=== PATIENT | female | born 1975 | race Caucasian/White ===

== ENCOUNTER 2016-12-05 17:05 | Emergency (ER) | payer OTHER ==
[2016-12-05 19:47] VITALS: BP 142/80
--- NOTE | 2016-12-05 20:12 | UC ---
Skin Complaint HPI - HPI Summary HPI Summary: complaint of rash that started on her upper arms started 2 days ago then today her legs had a red itchy rash now the rash is spreading to her stomach and back started using hydrocortisone and alevera cream with some relie f hx of food allergies took some zyrtec with some relief denies any new lotions, detergents , foods, medicaitons new laundry soap no close contacts with rash - History of Current Complaint Chief Complaint: UCRash Time Seen by Provider: 12/05/16 20:05 Stated Complaint: RASH Hx Obtained From: Patient Hx Last Menstrual Period: n/a - Allergy/Home Medications Allergies/Adverse Reactions: Allergies Allergy/AdvReac Type Severity Reaction Status Date / Time certain food Allergy Swelling Uncoded 12/05/16 19:48 Of Face,Lips,& Throat seasonal Allergy Congestion Uncoded 12/05/16 19:48 Home Medications: Home Medications Cetirizine* [ZyrTEC*] 10 mg PO DAILY 12/05/16 [History Confirmed 12/05/16] Eczema Rescue 1 dose TOPICAL ONCE PRN 12/05/16 [History Confirmed 12/05/16] Hydrocortisone 0.5% CM(NF) [Hydrocortisone 0.5% CREAM(NF)] 1 applic .SEE ORDER BID 12/05/16 [History Confirmed 12/05/16] Review of Systems Constitutional: Negative Skin: Rash Eyes: Negative ENT: Negative Respiratory: Negative Cardiovascular: Negative Gastrointestinal: Negative Genitourinary: Negative Motor: Negative Neurovascular: Negative Musculoskeletal: Negative Neurological: Negative Psychological: Negative All Other Systems Reviewed And Are Negative: Yes PMH/Surg Hx/FS Hx/Imm Hx Previously Healthy: Yes - Surgical History Surgical History: Yes Surgery Procedure, Year, and Place: uterine, , tubal liigation, ablation - Family History Known Family History: Negative: Cardiac Disease, Hypertension, Diabetes - Social History Occupation: Employed Full-time Lives: With Family Alcohol Use: Weekly Substance Use Type: None Smoking Status (MU): Light Every Day Tobacco Smoker Physical Exam Triage Information Reviewed: Yes Appearance: No Pain Distress, Well-Nourished Vital Signs: Initial Vital Signs Temp 97.9 F 12/05/16 19:38 Pulse 88 12/05/16 19:38 Resp 20 12/05/16 19:38 BP 142/80 12/05/16 19:38 Vital Signs Reviewed: Yes Eyes: Positive: Conjunctiva Clear ENT: Positive: Pharynx normal, TMs normal Neck: Positive: No Lymphadenopathy Respiratory: Positive: Lungs clear, Normal breath sounds, No respiratory distress Cardiovascular: Positive: RRR, No Murmur, Pulses Normal Musculoskeletal: Positive: No Edema Neurological: Positive: Alert Psychological Exam: Normal Skin: Positive: Other - scattered papules surrounding by flat erythemaous areas accross arms, legs and torso no tunneling Course/Dx - Differential Diagnoses - Skin Complaint Differential Diagnoses: Contact Dermatitis, Eczema, Scabies - Diagnoses Provider Diagnoses: contact dermatitis Discharge - Discharge Plan Condition: Stable Disposition: HOME Prescriptions: predniSONE TAB* [Deltasone TAB*] 50 mg PO DAILY #5 tab Patient Education Materials: Contact Dermatitis (ED) Referrals: Larry Lynn MD [Primary Care Provider] - Additional Instructions: Start prednisone as directed Increase fluids and rest Please review your discharge instructions. If your symptoms do not improve please call your primary care provider or return to urgent care
== END 2016-12-05 20:24 | disposition home or self-care (01) ==
LOC: UCCORT 17:05
DX: L25.9 Unspecified contact dermatitis, unspecified cause (principal); F17.210 Nicotine dependence, cigarettes, uncomplicated; Z91.018 Allergy to other foods
CPT/HCPCS: 99202; G0463

== ENCOUNTER 2017-06-26 08:18 | Emergency (ER) | payer OTHER ==
[2017-06-26 08:40] VITALS: BP 116/75
--- NOTE | 2017-06-26 09:25 | UC ---
Eye Complaint HPI - HPI Summary HPI Summary: 41 yo female with left eye redness and d/c today runny nose post nasal drip sore throat cough just started amox - History of Current Complaint Chief Complaint: UCEye Stated Complaint: LEFT EYE COMPLAINT Time Seen by Provider: 06/26/17 09:08 Hx Obtained From: Patient Hx Last Menstrual Period: n/a Onset/Duration: Sudden Onset, Lasting Hours Timing: Constant Severity Initially: Mild Severity Currently: Mild Pain Intensity: 0 Pain Scale Used: 0-10 Numeric Associated Signs And Symptoms: Positive: Drainage (Purulent). Negative: Photophobia, Vision Impairment Bilateral, Vision Impairment Right, Vision Impairment Left, Fever, Swelling - Allergies/Home Medications Allergies/Adverse Reactions: Allergies Allergy/AdvReac Type Severity Reaction Status Date / Time certain food Allergy Swelling Uncoded 06/26/17 08:30 Of Face,Lips,& Throat seasonal Allergy Congestion Uncoded 06/26/17 08:30 Home Medications: Home Medications Amoxicillin PO (*) [Amoxicillin 500 MG CAP*] 1 cap TID 06/26/17 [History Confirmed 06/26/17] PMH/Surg Hx/FS Hx/Imm Hx Previously Healthy: Yes - Surgical History Surgical History: Yes Surgery Procedure, Year, and Place: uterine, , tubal liigation, ablation - Family History Known Family History: Negative: Cardiac Disease, Hypertension, Diabetes - Social History Alcohol Use: Weekly Substance Use Type: None Smoking Status (MU): Light Every Day Tobacco Smoker Type: Cigarettes Amount Used/How Often: 1/2 PPD - Immunization History Most Recent Influenza Vaccination: NONE 2015 Review of Systems Constitutional: Negative Skin: Negative Eyes: Drainage, Eye Redness ENT: Nasal Discharge, Sinus Congestion Respiratory: Cough Cardiovascular: Negative Gastrointestinal: Negative Genitourinary: Negative Motor: Negative Neurovascular: Negative Musculoskeletal: Negative Neurological: Negative Psychological: Negative All Other Systems Reviewed And Are Negative: Yes Physical Exam Triage Information Reviewed: Yes Appearance: Well-Appearing, No Pain Distress, Well-Nourished Vital Signs: Initial Vital Signs Temp 98.5 F 06/26/17 08:32 Pulse 94 06/26/17 08:32 Resp 18 06/26/17 08:32 BP 116/75 06/26/17 08:32 Pulse Ox 99 06/26/17 08:32 Vital Signs Reviewed: Yes Eyes: Positive: Conjunctiva Inflamed, Discharge - L ENT: Positive: Pharyngeal erythema, Nasal congestion, Nasal drainage, TM bulging - right, Other: - no sinus tenderness. Negative: Tonsillar swelling, Tonsillar exudate, Trismus, Muffled/hoarse voice Dental Exam: Normal Neck: Positive: Supple, Nontender, No Lymphadenopathy Respiratory: Positive: Lungs clear, Normal breath sounds, No respiratory distress Cardiovascular: Positive: RRR, No Murmur Musculoskeletal: Positive: ROM Intact, No Edema Neurological: Positive: Alert Psychological Exam: Normal Skin Exam: Normal Eye Complaint Course/Dx - Differential Dx/Diagnosis Provider Diagnoses: left conjunctivits. pharyngitis. viral URI Discharge - Discharge Plan Condition: Stable Disposition: HOME Prescriptions: Benzonatate CAP* [Tessalon CAP*] 100 - 200 mg PO TID PRN #28 cap PRN Reason: Cough Fluticasone NASAL SPRAY 50MCG* [Flonase NASAL SPRAY 50MCG*] 2 spray BOTH NARES DAILY #1 btl Polymyx/Trimethoprim OPTH* [Polytrim OPHTH*] 1 - 2 drop LEFT EYE QID #1 btl Patient Education Materials: Conjunctivitis (ED) Referrals: Larry Lynn MD [Primary Care Provider] - 4 Days (if not better) Additional Instructions: recheck for eye pain/light sensitivity
== END 2017-06-26 09:27 | disposition home or self-care (01) ==
LOC: UCCORT 08:18
DX: H10.9 Unspecified conjunctivitis (principal); J02.9 Acute pharyngitis, unspecified; Z79.2 Long term (current) use of antibiotics; Z72.0 Tobacco use
CPT/HCPCS: 99212; G0463

== ENCOUNTER 2017-12-17 12:41 | Emergency (ER) | payer OTHER ==
[2017-12-17] MEDS ORDERED: Ibuprofen TAB* 400 MG PO ONE (14:24)
--- NOTE | 2017-12-17 14:25 | UC ---
FLU HPI - HPI Summary HPI Summary: 42 y/o female presents to the urgent care c/o nasal congestion w/ clear nasal discharge, fever and productive cough since 12/16/2017. She is a heavy somker and she started to feel mild SOB w/ wheezing, body aches and chills. She has taking cold and flu OTC to alleviate symptoms. Pt denies chest pain, dizziness , chest pain, abdominal pain, N/V/D. - History of Current Complaint Chief Complaint: UCRespiratory Stated Complaint: ACHES, FEVER, CONGESTION Time Seen by Provider: 12/17/17 14:21 Hx Obtained From: Patient Hx Last Menstrual Period: n/a ?: No - uterine ablation Onset/Duration: Gradual Onset Severity Currently: Moderate Severity Initially: Moderate Pain Intensity: 5 Pain Scale Used: 0-10 Numeric Associated Signs & Symptoms: Positive: Fever, Myalgia, Cough, Nasal Congestion, Headache - Risk Factors Influenza Risk Factors: Negative - Allergy/Home Medications Allergies/Adverse Reactions: Allergies Allergy/AdvReac Type Severity Reaction Status Date / Time certain food Allergy Swelling Uncoded 12/17/17 14:08 Of Face,Lips,& Throat seasonal Allergy Congestion Uncoded 06/26/17 08:30 Home Medications: Home Medications D-Methorphan/PE/Acetaminophen [Cold Multi-Symptom Caplet] 1 tab PO PRN 12/17/17 [History] PMH/Surg Hx/FS Hx/Imm Hx Previously Healthy: Yes - Pt denies PMHX - Surgical History Surgical History: Yes Surgery Procedure, Year, and Place: uterine, , tubal liigation, ablation - Family History Known Family History: Positive: Hypertension Negative: Cardiac Disease, Diabetes - Social History Occupation: Employed Full-time Lives: With Family Alcohol Use: Weekly Substance Use Type: None Smoking Status (MU): Light Every Day Tobacco Smoker Type: Cigarettes Amount Used/How Often: 1/2 PPD Household Exposure Type: Cigarettes - Immunization History Most Recent Influenza Vaccination: NONE 2015 Review of Systems Constitutional: Fever, Chills, Fatigue, Other - body aches Skin: Negative Eyes: Negative ENT: Nasal Discharge, Sinus Congestion, Other - +PND Respiratory: Shortness Of Breath, Cough, Other - wheezing Cardiovascular: Negative Gastrointestinal: Negative Genitourinary: Negative Motor: Negative Neurovascular: Negative Musculoskeletal: Negative Neurological: Headache Psychological: Negative Is Patient Immunocompromised?: No All Other Systems Reviewed And Are Negative: Yes Physical Exam Triage Information Reviewed: Yes Vital Signs: Initial Vital Signs Temp 102 F 12/17/17 14:11 Pulse 99 12/17/17 14:11 Resp 16 12/17/17 14:11 BP 127/71 12/17/17 14:11 Pulse Ox 94 12/17/17 14:11 - Additional Comments VITAL SIGNS: Reviewed. GENERAL: Patient is a well developed and nourished who is sitting comfortable in the examining table. Patient is not in any acute respiratory distress. HEAD AND FACE: No signs of trauma. No ecchymosis, hematomas or skull depressions. No sinus tenderness. edematous erythematous nasal mucosa with yellowish discharge, EYES: PERRLA, EOMI x 2, No injected conjunctiva, clear watery eyes, no nystagmus. No photophobia. EARS: Hearing grossly intact. Ear canals and tympanic membranes are within normal limits. MOUTH: Positive pharynx with erythema, no exudates,no palatal petechiae. no B/L tonsillar enlargement Uvula in midline. NECK: Supple, trachea is midline, Positive anterior cervical lymphadenopathy, no JVD, no carotid bruit, no c-spine tenderness, neck with full ROM. No meningeal signs, no Kernig's or brudzinskis signs. CHEST: Symmetric, no tenderness at palpation LUNGS: Positive breath sound w/ posterior BL lungs difuse wheezing, and decrease breath sounds, no rhonchi or crackles. CVS: Regular rate and rhythm, S1 and S2 present, no murmurs or gallops appreciated. ABDOMEN: Soft, non-tender. No signs of distention. No rebound no guarding, and no masses palpated. Bowel sounds are normal. EXTREMITIES: FROM in all major joints, no edema, no cyanosis or clubbing. NEURO: Alert and oriented x 3. No acute neurological deficits. Speech is normal and follows commands. SKIN: Dry and warm Flu Course/Dx - Course Course Of Treatment: 42 y/o female presents to the urgent care c/o nasal congestion w/ clear nasal discharge, fever and productive cough since 2017. She is a heavy somker and she started to feel mild SOB w/ wheezing, body aches and chills. She has taking cold and flu OTC to alleviate symptoms. Pt denies chest pain, dizziness, chest pain, abdominal pain, N/V/D. Hx obtained. Pt febrile w/ URI and B/L posterior lungs w/ diffuse wheezing on examination. O2sat:94% Pt is a heavy every day smoker. Chest X-ray ordered: Impression. No active acute cardio pulmonary disease observed as per radiologist. Pt given Prednisone PO and Duoneb Treatment and Ibuprofen PO for fever at the clinic. Patient tolerated well treatment and lungs improved, mild wheezing only in posterior upper lungs, O2 sat 98% and temp:100.6F. Patient left the clinic ambulating and feeling better. Patient prescribed Tamiflu PO, albuterol inhaler and Prednisone taper dose as directed below. The patient was recommended to increase fluid intake. Take medications as recommended and patient advised to continue w/ albuterol treatments TID. Patient recommended to return to the clinic or go to the nearest ER if symptoms do not improve or worsen. Patient understood and agree. Pt with pharyngitis on examination. Rapid strep ordered, result: negative.Influenza A&B ordered: result: Influenza B positive.Pt Rx Tamiflu and ibuprofen PO to alleviates symptoms. Advised on hand washing and wear a mask to avoid spreading. Pt advised to rest, increase fluid intake, eat well and avoid strenuous exercise. If symptoms do not improve or worsen advised to return to the urgent care or f/u with her PCP for further evaluation and treatment. Pt understood and agreed with plan of care. - Differential Dx/Diagnosis Differential Diagnosis/HQI/PQRI: Bronchitis, Influenza, Pneumonia, Upper Respiratory Infection Provider Diagnoses: 1- Influenza A. 2-fever. 3-Wheezing Discharge - Discharge Plan Condition: Stable Disposition: HOME Prescriptions: Albuterol HFA INHALER* [Ventolin HFA Inhaler*] 1 - 2 puff INH Q4H PRN #1 mdi PRN Reason: Wheezing Ibuprofen TAB* [Motrin TAB* 800 MG] 800 mg PO Q6H PRN #20 tab PRN Reason: Fever Oseltamivir CAP* [Tamiflu CAP*] 75 mg PO BID #10 cap predniSONE TAB* [Deltasone TAB*] 20 mg PO DAILY #8 tab Patient Education Materials: Influenza (ED), Wheezing (ED) Forms: *Work Release Referrals: [facility] [Outside] - 3 Days Additional Instructions: 1- Please take the full course of the antiviral to avoid resistance. Encourage hand washing and wear a mask to avoid spreading. 2-Please continue taking Ibuprofen PO q6-8hrs prn as instructed after meals to alleviate fever, and sore throat. Increase fluid intake, eat well, rest and avoid strenuous exercise 3- Take Prednisone PO as directed starting tomorrow. First dose given at the clinic today. Also take Albuterol inhaler to alleviate Wheezing. 4-If symptoms worsen please and you develop severe SOB, wheezing go immediately to the ER for further manage. 5- Please f/u w/ r your PCP in 2-3 days for recheck on your symptoms.
[2017-12-17] MEDS ORDERED: Albuterol/Ipratropium NEB.SOL* Albuterol 2.5 MG/Ipratropium 0.5 MG 3 ML INH ONE (14:34)
[2017-12-17] MEDS ORDERED: predniSONE TAB* 20 MG PO ONE (14:34)
--- NOTE | 2017-12-17 15:10 | RAD ---
INDICATION: Productive cough and fever. COMPARISON: There are no prior studies available for comparison. TECHNIQUE: Dual-energy PA and lateral views of the chest were obtained. FINDINGS: The heart is within normal limits in size. Mediastinal and hilar contours appear within normal limits. The lungs are clear. No pleural effusion is present. IMPRESSION: NO EVIDENCE FOR ACTIVE CARDIOPULMONARY DISEASE.
[2017-12-17 15:38] VITALS: BP 103/64
== END 2017-12-17 15:49 | disposition home or self-care (01) ==
LOC: UCCORT 12:41
DX: J11.1 Influenza due to unidentified influenza virus with other respiratory manifestations (principal); R06.2 Wheezing; F17.210 Nicotine dependence, cigarettes, uncomplicated
CPT/HCPCS: 71046; 87502; 99213; A9270-GY; G0463; J7512